=== PATIENT | female | born 1985 | race Caucasian/White ===

== ENCOUNTER 2020-10-06 15:46 | Outpatient (CLI) | payer OTHER, SELFPAY ==
[2020-10-06 16:30] LABS: Hematocrit 41.1 % (37.0-47.0); Hemoglobin 13.8 g/dL (12.0-15.0); Mean Corpuscular HGB Conc 33.6 g/dl (32-36); Mean Corpuscular Hemoglobin 29.9 pg (26-34); Mean Platelet Volume 9.6 fl (7.4-10.4); Platelet Count Result 302 k/mm3 (150-375); Red Blood Count 4.62 M/mm3 (4.2-5.4); Red Cell Distribution Width 12.5 % (11.5-14.5); White Blood Count 5.6 K/mm3 (4.5-10.0)
[2020-10-06 17:32] LABS: Vitamin D 25 Hydroxy 38.8 ng/mL
== END 2020-10-06 15:47 | disposition home or self-care (01) ==
PROVIDERS: PCP Family Medicine; Visit Provider Obstetrics & Gynecology Gynecology
DX: E55.9 Vitamin D deficiency, unspecified (principal); D64.9 Anemia, unspecified
CPT/HCPCS: 36415; 82306; 85027

== ENCOUNTER → 2023-01-03 11:56 | Outpatient (CLI) | payer OTHER, SELFPAY ==
--- NOTE | ~2023-01-03 | XR_ITS ---
EXAM: XR shoulder LT min 2V DATE: 01/03/2023 12:13 HISTORY: L shoulder dislocation/reduced herself recently pain raising . COMPARISON: None available. FINDINGS: Normal mineralization. Slight posterior cortical irregularity of the humeral head, seen in the scapular Y view. No lytic or blastic lesion. Joint spaces are maintained. No erosion or perioste al change. Soft tissues within normal limits. IMPRESSION: Possible Hill-Sachs deformity, consistent with the given history of recent dislocation. Reviewed, dictated and finalized at location K.
== END ==
PROVIDERS: PCP Family Medicine; Visit Provider Family Medicine
DX: M25.512 Pain in left shoulder (principal); S43.005A Unspecified dislocation of left shoulder joint, initial encounter; X58.XXXA Exposure to other specified factors, initial encounter
CPT/HCPCS: 73030

== ENCOUNTER → 2023-01-06 14:01 | Outpatient (CLI) | payer OTHER, SELFPAY ==
--- NOTE | ~2023-01-06 | MR_ITS ---
EXAMINATION: MR shoulder LT wo con DATE: 01/06/2023 15:03 INDICATION: Other specified acquired deformities of left shoulder. Left shoulder dislocation. TECHNIQUE: Magnetic resonance imaging (MRI) of the left shoulder was performed without intravenous co ntrast. Sequences included axial PD-weighted FS FSE, coronal oblique PD-weighted FS FSE and T2-weight ed FS FSE, and sagittal oblique T2-weighted FS FSE and T1-weighted FSE. COMPARISON: Left shoulder radiographs 01/03/2023 FINDINGS: Coracoacromial arch: The acromion undersurface is flat in morphology (type I). 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 There is mild subacromial/subdeltoid bursitis. Rotator cuff: There is mild supraspinatus and infraspinatus tendinopathy. Teres minor tendon is normal. Subscapular is tendon is normal. There is no fatty atrophy of the rotator cuff muscle bellies. Biceps tendon and glenoid labrum: Biceps tendon is in bicipital groove. Intra-articular biceps tendon is normal. There is a tear of ant eroinferior labrum (Bankart lesion). Fluid: There is a small glenohumeral joint effusion. There is edema in the fat anterior to the shoulder. Bones/cartilage: There is an impaction fracture deformity of posterolateral aspect of humeral head with edema-like mar row signal intensity (Hill-Sachs fracture deformity). The glenoid cartilage is normal. Humeral head c artilage is normal. IMPRESSION: 1. Tear of the anteroinferior labrum. 2. Acute/subacute Hill-Sachs fracture deformity. Reviewed, dictated and finalized at location A.
== END ==
PROVIDERS: PCP Family Medicine; Visit Provider Family Medicine
DX: M21.822 Other specified acquired deformities of left upper arm (principal); S43.492A Other sprain of left shoulder joint, initial encounter; X58.XXXA Exposure to other specified factors, initial encounter
CPT/HCPCS: 73221

== ENCOUNTER 2023-01-10 15:02 | Outpatient (RCR) | payer OTHER, SELFPAY ==
[2023-01-10 14:26] VITALS: BP_SYST 90
--- NOTE | 2023-01-11 13:18 | PTOPEVAL1 ---
Assessment and note entered by Matt Field, PT, DPT Evaluation Information Assessment Status Evaluation Diagnosis L shoulder dislocation Subjective Information Pt states she was going down a water slide and hit her arm on a rock and dislocated it. She states she was able to reduce it. She states her pain is pretty well controlled. This was her first dislocation. Reported Pain Level Pain Score 0: Self Report Assessment PT Clinical Summary Rex presents to therapy today for her initial evaluation following a traumatic L shoulder dislocation with a resulting anterior labrum tear and a Hill Sachs lesion. Today she demonstrates fair active shoulder ROM that is decreased from her R shoulder. Scapular resting position is equal and she reports no pain at rest. She was instructed in a HEP to focus on progressive ROM and shoulder stability. D/t limited pain and having mostly functional ROM, pt would like to complete her HEP on her own. She is scheduled to follow up in a month. Plan of Care Interventions Hot Pack/Cold Pack,Manual Therapy,Neuro Re- education,Patient/Caregiver Educati,Therapeutic Activities,Therapeutic Exercise PT Services Indicated Yes Treatment Frequency and follow up in 1 month Duration These treatments will address the objective and functional deficits as defined above. The patient will be advanced safely and appropriately in order for the patient to progress towards his/her prior level of function. Additional exercises will be introduced and as well as a comprehensive home exercise program upon discharge, if needed, ?to ensure carryover of functional gains achieved in the clinic. This treatment plan has been reviewed and agreement upon by the patient.
--- NOTE | 2023-02-07 14:40 | PCPTNOTE ---
Patient called & cancelled scheduled appointment this date due to a work conflict. States she will call back to reschedule.
--- NOTE | 2023-04-10 13:12 | PCPTNOTE ---
This treatment is being continued on visit number [id number]. Please see documentation on both accounts to view progress. Completed interventions, outcomes, and problems have been marked as Inactive to facilitate the copying of the Care plan routine for recurring accounts.
== END 2023-04-10 11:31 | disposition still patient (30) ==
LOC: ANHGOSHPT 15:02
PROVIDERS: PCP Family Medicine; Visit Provider Family Medicine
DX: M25.512 Pain in left shoulder (principal)
CPT/HCPCS: 97110; 97161

== ENCOUNTER → 2023-01-20 10:40 | Outpatient (CLI) | payer OTHER, SELFPAY | PROVIDERS: PCP Nurse Practitioner Family; Visit Provider Nurse Practitioner Family | DX: M79.671 Pain in right foot (principal) | CPT/HCPCS: 73630 ==